=== PATIENT | male | born 1980 | race Caucasian/White ===

== ENCOUNTER 2016-08-04 07:40 | Emergency (ER) | payer SELFPAY ==
--- NOTE | ~2016-08-04 | CR72 ---
[facility] A Service of [facility] & [facility] RADIOLOGY TEXT RESULTS PATIENT: NAHID ORTIZ LOCATION: SED : 80 UNIT #: [id number] AGE: [address]: Lawrence Romo MD SEX: M ORDER DR: [id number] [place] [id number] MR#: [id number] Acc #: [id number] NAME: NAHID ORTIZ. : 1980 SEX: M STUDY DATE/TIME: 08/04/2016 7:48 UNIT: SED ROOM: STUDY DESCRIPTION: CR Chest Single View Portable Attending Physician: Lawrence Romo M.D. Ordering Physician: Lawrence Romo M.D. Primary Care Physician: Primary Care Physician No MEDICAL IMAGING REPORT This report is preliminary unless electronic signature is present. EXAM Portable chest HISTORY History supplied is anxiety, chest pain for a few days. FINDINGS An AP view is obtained. The cardiovascular configuration is normal and the lungs are clear. CONCLUSION Negative portable chest Dictated by... Porter Stallings M.D. THIS IS AN ELECTRONICALLY VERIFIED REPORT Porter Stallings M.D. at 08/04/2016 3:37 PM Lesia TD: 08/04/2016 12:32 JOB #: [id number] MEDICAL IMAGING REPORT
--- NOTE | ~2016-08-04 | EKG ---
PATIENT: NAHID ORTIZ UNIT #: [id number] Ventricular Rate: 82 BPM Atrial Rate: 82 BPM P-R Interval: 136 ms QRS Duration: 100 ms Q-T Interval: 354 ms QTC Calculation(Bezet): 413 ms P [place]: 22 degrees Calculated R [place]: 67 degrees Calculated T [place]: 35 degrees Diagnosis Line: Normal sinus rhythm with sinus arrhythmia Diagnosis Line: Normal ECG Diagnosis Line: No previous ECGs available Diagnosis Line: Confirmed by CARMEN SAUER MD ([id number]) on Diagnosis Line: 08/05/2016 11:22:04 AM INTERPRETING MD: CAMACHO MOHAN
[~2016-08-04 07:40] MED LIST: VICODIN 5/500 T1 TAB PO
[2016-08-04 07:52] LABS: BASOPHIL# 0.1 X10e3 (0-0.3); BASOPHIL% 0.8 % (0-2.5); EOSINOPHIL# 0.4 X10e3 (0-0.7); EOSINOPHIL% 5.6 % (0.0-7.0); HEMOGLOBIN 14.1 gm/dL (13.0-16.0); LYMPHOCYTE# 2.3 X10e3 (1.0-3.5); LYMPHOCYTE% 33.6 % (17.0-45.0); MEAN CELL VOLUME 88.7 FL (83-96); MEAN CORPUSCULAR HEMOGLOBIN 29.8 PG (28-34); MEAN CORPUSCULAR HGB CONC 33.6 g/dL (30-36); MEAN PLATELET VOLUME 7.6 FL (6.5-11.5); MONOCYTE# 0.5 X10e3 (0-1.0); MONOCYTE% 7.8 % (3.0-12.0); NEUTROPHIL# 3.7 X10e3 (1.5-7.1); NEUTROPHIL% 52.2 % (40-75); PLATELET COUNT 333 X10e3 (140-420); RED BLOOD COUNT 4.73 X10e (3.90-5.60); RED CELL DISTRIBUTION WIDTH 13.5 % (11.0-15.5)
[2016-08-04 07:58] LABS: DIFF IND NO
[2016-08-04 08:03] LABS: INR 1.2; PROTHROMBIN TIME (PATIENT) 13.4 SECONDS (9.5-12.4)
[2016-08-04 08:05] LABS: POC - CKMB 1.3 ng/mL (0.0-7.9)
[2016-08-04 08:06] LABS: POC - MYOGLOBIN 45.6 ng/mL (0.0-169.0); POC - TROPONIN <0.05 ng/mL (<=0.05)
[2016-08-04 08:11] LABS: PARTIAL THROMBOPLASTIN TIME 31.3 SECONDS (25.6-38.1)
[2016-08-04 08:12] LABS: ALBUMIN SERUM 4.1 g/dL (3.5-5.0); ALKALINE PHOSPHATASE 53 U/L (32-92); ALT (SGPT) 19 U/L (10-40); AST (SGOT) 22 U/L (10-42); BILIRUBIN,TOTAL 0.6 mg/dL (0.2-2.0); BLOOD UREA NITROGEN 15 mg/dL (9-23); BUN/CREATININE RATIO 16.66; CALCIUM SERUM 8.9 mg/dL (8.4-10.2); CARBON DIOXIDE 25 mmol/L (22-31); CHLORIDE 100 mmol/L (100-111); CREATININE SERUM 0.9 mg/dL (0.6-1.4); GLOM FILT RATE Estimated ABOVE60 mL/min (>60); GLUCOSE FASTING 134 mg/dL (70-110); POTASSIUM 3.7 mmol/L (3.5-5.1); PROTEIN TOTAL SERUM 7.4 g/dL (6.0-8.3); SODIUM 134 mmol/L (135-145)
[2016-08-04 08:19] LABS: BILIRUBIN, DIRECT <0.1 mg/dL (0.0-0.2); BILIRUBIN,INDIRECT 0.5 mg/dL (0.0-0.9)
== END 2016-08-04 08:55 | disposition home or self-care (01) ==
LOC: SED 07:40
PROVIDERS: Emergency Medicine
DX: R07.89 Other chest pain (principal); F41.9 Anxiety disorder, unspecified; F17.210 Nicotine dependence, cigarettes, uncomplicated
CPT/HCPCS: 36415; 71010; 80048; 80076; 82553; 83874; 84484; 85025; 85379; 85610; 85730; 93005; 99284